=== PATIENT | male | born 1980 | race Caucasian/White ===

== ENCOUNTER 2020-03-26 19:55 | Emergency (ER) | payer BC, SELFPAY ==
--- NOTE | 2020-03-26 20:01 | DI.RAD.S_ITS ---
PROCEDURE: XR HUMERUS LT 2V INDICATIONS: deep laceration, possible foreign body TECHNIQUE: 2 views of the humerus were acquired. COMPARISON: None. FINDINGS: Bones: No fractures or dislocations. No suspicious bony lesions. Soft tissues: No suspicious soft tissue calcifications. No radiopaque foreign body identified. IMPRESSION: No acute osseous abnormality. No radiopaque foreign body identified. Dictated by: Ric Madrigal M.D. on 03/26/2020 at 20:22 Approved by: Ric Madrigal M.D. on 03/26/2020 at 20:24
[2020-03-26 20:13] VITALS: BP 149/77; PULSE 105; RESP 15; TEMP 36.6; O2SAT 98; BMI 32.8
[2020-03-26] MEDS: BUPIVACAINE 0.5% W/ EPI (PF) 30 ML VIAL 5 ML SUBCUT (20:13)
[2020-03-26] MEDS: TET,DIPH,PERTUSS(ACELL),VAC/PF 0.5 ML SYRINGE IM (20:14)
[2020-03-26 21:03] VITALS: BP 126/69; PULSE 77; O2SAT 96
[2020-03-26] MEDS: HYDROCODONE/ACET 5/325 PREPACK 1 BOTTLE MISC (21:08)
--- NOTE | 2020-03-26 21:14 | ED.WOUNDLAC ---
HPI - Wound/Laceration General Chief Complaint: Wound/Laceration Stated Complaint: Lt Arm Laceration Time Seen by Provider: 03/26/20 19:55 Source: patient Mode of arrival: Family Vehicle Limitations: no limitations History of Present Illness HPI narrative: 39M nonsmoker with noncontributory medical history presents with a deep laceration on the posterior aspect of his left arm. He is unsure of the specifics but he broke a wine glass and then cut himself. He doesn't think there is glass in the would. He denies numbness, tingling, weaknes or other. His tetanus will need to be updated. Onset (ago): minute(s) Extremity Location: Left: arm Place: home Patient tetanus UTD: No Context: accidental Associated symptoms: pain Treatments prior to arrival: bandage Related Data Allergies Allergy/AdvReac Type Severity Reaction Status Date / Time No Known Drug Allergies Allergy Verified 03/26/20 20:13 Review of Systems Constitutional Constitutional: Denies chills, Denies fatigue, Denies fever(s), Denies frequent falls, Denies lethargy and Denies weakness Eyes Eyes: Denies change in vision, Denies eye discharge, Denies irritation and Denies loss of vision ENT Ears, Nose, Mouth, and Throat: Denies change in voice, Denies dizziness, Denies neck pain, Denies sore throat and Denies throat swelling Cardiovascular Cardiovascular: Denies chest pain, Denies irregular heart rhythm, Denies lightheadedness, Denies palpitations, Denies dyspnea, Denies dyspnea on exertion and Denies orthopnea Respiratory Respiratory: Denies cough, Denies dyspnea, Denies dyspnea on exertion and Denies wheezing Gastrointestinal Gastrointestinal: Denies abdominal pain, Denies change in bowel habits, Denies diarrhea, Denies nausea and Denies vomiting Musculoskeletal Musculoskeletal: Denies neck pain and Denies numbness Integumentary/Breasts Skin/Breast: Denies pruritus, Denies erythema, Denies rash and Reports wounds Neurologic Neurologic: Denies behavioral changes, Denies confusion, Denies dizziness, Denies frequent falls, Denies loss of vision, Denies numbness and Denies weakness Psychiatric Psychiatric: Denies anxiety, Denies behavioral changes, Denies confusion, Denies depression, Denies homicidal ideation and Denies suicidal ideation Endocrine Endocrine: Denies fatigue, Denies flushing and Denies palpitations Hematologic/Lymphatic Hematologic/Lymphatic: Denies easy bruising Allergic/Immunologic Allergic/Immunologic: Denies urticaria, Denies throat swelling and Denies wheezing Patient History Social History Smoking Status: Current every day smoker Smoking Status: Current every day smoker alcohol intake frequency: a few times a week Substance Use Type: does not use Exam Narrative Exam Narrative: GEN: AOx3 and in mild distress EYES: Pupils are equal, round, and reactive to light and accommodation. Extraoccular muscles are intact bilaterally. There is no subconjunctival hemorrhage or exudate. CHEST: Lungs are clear to auscultation bilaterally and free of wheezes, rales, or rhonchi. Heart rate is regular rhythm, there are no murmurs, clicks, rubs, or gallops. There is no chest wall tenderness. ABD: Abdomen is soft and nontender. There is no guarding or rebound. Bowel sounds are normal in all 4 quadrants. There is no mass or organomegaly. EXT: Full painless ROM of all extremities with no loss of sensation or strength. SKIN: 7cm deep laceration on mid, posterior left arm, some mild active bleeding. No muscle involvement, only subq fat exposed. No foreign body noted. Largely a linear cut, but proximal edge has a bit of a jagged flap. Warm, pink, and dry. No erythema or rash Initial Vital Signs Initial Vital Signs: Vital Signs Temperature 98 F 03/26/20 20:13 Pulse Rate 105 H 03/26/20 20:13 Respiratory Rate 15 03/26/20 20:13 Blood Pressure 149/77 H 03/26/20 20:13 Pulse Oximetry 98 03/26/20 20:13 Procedures Laceration Repair Laceration 1: Site: upper extremity Side (If applicable): left Size (cm): 7 Description: linear Depth: simple, single layer Local Anesthetic: bupivacaine 0.25% and with epi Amount of anesthesia used (mL): 10 Pre-repair: wound explored, irrigated extensively and deep structures intact Skin layer closed with: nylon Size (cm): 3-0 Number of sutures: 7 Technique: simple, interrupted Subcutaneous layer closed with: vicryl Size: 4-0 Number of sutures: 3 Technique: simple, interrupted Course Orders Ordered: ED Orders 03/26/20 20:01 XR humerus LT 2V Stat Discontinued Medications Hydrocodone Bitart/Acetaminophen (Vicodin 5/325 Prepack) 1 bottle MISC SEEINSTR ONE Stop: 03/26/20 21:00 Last Admin: 03/26/20 21:08 Dose: 1 bottle Documented by: FORTINO Bupivacaine HCl/Epinephrine Bitart (Sensorcaine 0.5% W/ Epi (Pf)) 5 ml SUBCUT NOW ONE Stop: 03/26/20 20:02 Last Admin: 03/26/20 20:13 Dose: 5 ml Documented by: FORTINO Diphtheria/Tetanus/Acell Pertussis (Adacel) 0.5 ml IM .ONCE ONE Stop: 03/26/20 20:06 Last Admin: 03/26/20 20:14 Dose: 0.5 ml Documented by: FORTINO Vital Signs Vital signs: Vital Signs - 8 hr 03/26/20 20:13 03/26/20 21:03 Temperature 98 F Pulse Rate 105 H 77 Respiratory Rate 15 Blood Pressure 149/77 H 126/69 Pulse Oximetry 98 96 MDM - Wound/Laceration Imaging Data Extremity x-ray #1: Radiologist's Impression: MaryMichelet 39 M 1980 [place] [address] XRay Report Signed Patient: Michelet Mary DMR#: [id number] : 1980Acct:[id number] Age/Sex: 39 / MDate of Service: 03/26/20 Loc: ED Accession Number: [id number] Procedure: XR humerus LT 2V Ordering Provider: Prince Hill D.O. PROCEDURE: XR HUMERUS LT 2V INDICATIONS: deep laceration, possible foreign body TECHNIQUE: 2 views of the humerus were acquired. COMPARISON: None. FINDINGS: Bones: No fractures or dislocations. No suspicious bony lesions. Soft tissues: No suspicious soft tissue calcifications. No radiopaque foreign body identified. IMPRESSION: No acute osseous abnormality. No radiopaque foreign body identified. Dictated by: Ric Madrigal M.D. on 03/26/2020 at 20:22 Approved by: Ric Madrigal M.D. on 03/26/2020 at 20:24 Discharge Plan Departure Patient Disposition: Home Clinical Impression: Laceration Discharge Date/Time: 03/26/20 21:13 Instructions: DI for Laceration Repair Activity Restrictions/Additional Instructions: Please keep the wound clean and dry to the best of your ability. Please monitor for signs of infection such as redness to the skin or increasing pain. Have the sutures removed by your doctor in about 7 days. There are 7 sutures on the surface of your skin to be removed and the middle one is a mattress suture which your doctor will want to know. If you are unable to get into your doctor, we would be happy to remove the sutures in that same timeframe.
== END 2020-03-26 21:13 | disposition home or self-care (01) ==
PROVIDERS: Emergency Provider Emergency Medicine
DX: S41.112A Laceration without foreign body of left upper arm, initial encounter (principal); W25.XXXA Contact with sharp glass, initial encounter; Z23 Encounter for immunization
CPT/HCPCS: 12002; 73060; 90471; 99283; 99284; 90715